=== PATIENT | female | born 1980 | race Caucasian/White ===

== ENCOUNTER → 2017-12-03 09:02 | Outpatient (CLI) | payer OTHER, SELFPAY ==
[2017-12-09 16:45] LABS: HCG Quantitative /Beta subunit 719.08 mIU/mL
== END ==
PROVIDERS: PCP Family Medicine; Visit Provider Family Medicine
DX: E34.9 Endocrine disorder, unspecified (principal)
CPT/HCPCS: 36415; 84702

== ENCOUNTER → 2017-12-12 10:32 | Outpatient (CLI) | payer OTHER, SELFPAY | PROVIDERS: PCP Family Medicine; Visit Provider Family Medicine | DX: Z34.81 Encounter for supervision of other normal pregnancy, first trimester (principal) | CPT/HCPCS: 87086 ==

== ENCOUNTER → 2017-12-12 10:42 | Outpatient (CLI) | payer OTHER, SELFPAY ==
[2017-12-12 10:55] LABS: Bacteria Urine None Seen; RBC Urine None Seen (0-5/HPF); WBC Urine None Seen (0-5/HPF)
[2017-12-12 11:48] LABS: Add Manual Diff / Slide Review NO; Basophils Percent Auto 0.8 % (0-2); Eosinophils Percent Auto 1.7 % (2-4); Hemoglobin 13.4 g/dL (12.0-16.0); Lymphocytes Percent Auto 27.4 % (25-40); Mean Corpuscular HGB Conc 35.2 % (30-36); Mean Corpuscular Hemoglobin 32.6 PG (26-34); Mean Corpuscular Volume 92.8 fL (80-100); Monocytes Percent Auto 8.6 % (3-14); Neutrophils Absolute Auto 4600 /uL (3000-5900); Neutrophils Percent Auto 61.5 % (50-75); Platelet Count 283 X10^3/uL (150-400); Red Cell Distribution Width 12.6 % (11.6-14.8); White Blood Cell Count 7.4 X10^3/uL (4.5-11.0)
[2017-12-12 13:11] LABS: Appearance Urine UA CLEAR; Bilirubin Urine UA NEGATIVE (NEGATIVE); Color Urine UA YELLOW; Glucose Urine UA NEGATIVE (Negative); Ketones Urine UA NEGATIVE (NEGATIVE); Leukocyte Esterase Urine UA NEGATIVE (NEGATIVE); Nitrite Urine UA Negative (Negative); Occult Blood Urine UA NEGATIVE (Negative); Protein Urine UA NEGATIVE (Negative); Specific Gravity Urine UA <=1.005 (1.000-1.035); Urobilinogen Urine UA 0.2 E.U./dL (0.2)
[2017-12-12 13:17] LABS: Culture Indicated Urine Cult Not Indicated; Urine Comments Microscopic Normal
[2017-12-12 16:34] LABS: Hepatitis B Surface Antigen NEGATIVE s/c (NEGATIVE)
[2017-12-12 16:52] LABS: HIV 1 and 2 Antibody NEGATIVE (NEGATIVE); Hep C Virus Ab w/Reflex Quant NEGATIVE s/c (NEGATIVE)
[2017-12-17 07:38] LABS: HSV 2 IGG AB < 0.90 index (< 0.90)
[2017-12-19 09:49] LABS: Rapid Plasma Reagin NON-REACTIVE
== END ==
PROVIDERS: PCP Family Medicine; Visit Provider Family Medicine
DX: Z34.81 Encounter for supervision of other normal pregnancy, first trimester (principal)
CPT/HCPCS: 36415; 80055; 86787; 86850; 86900; 86901

== ENCOUNTER → 2017-12-29 12:45 | Outpatient (CLI) | payer OTHER, SELFPAY | PROVIDERS: PCP Family Medicine; Visit Provider Family Medicine | DX: O09.519 Supervision of elderly primigravida, unspecified trimester (principal); Z53.9 Procedure and treatment not carried out, unspecified reason | CPT/HCPCS: 81507 ==

== ENCOUNTER → 2017-12-30 16:09 | Outpatient (CLI) | payer OTHER, SELFPAY | PROVIDERS: PCP Family Medicine; Visit Provider Family Medicine | DX: O09.519 Supervision of elderly primigravida, unspecified trimester (principal) | CPT/HCPCS: 36415; 81507 ==

== ENCOUNTER → 2018-01-15 11:43 | Outpatient (CLI) | payer OTHER, SELFPAY ==
[2018-01-23 07:57] LABS: Informaseq SEE SEPARATE REPORTS
== END ==
PROVIDERS: PCP Family Medicine; Visit Provider Family Medicine
DX: O09.519 Supervision of elderly primigravida, unspecified trimester (principal)
CPT/HCPCS: 36415; 81507

== ENCOUNTER → 2018-03-19 07:15 | Outpatient (CLI) | payer OTHER, SELFPAY ==
--- NOTE | 2018-03-19 07:37 | DI.US.S_ITS ---
PROCEDURE: US OB >= 14 WEEKS FETUS INDICATIONS: ANATOMY OUTSIDE/PRIOR DATING DATA: Last menstrual period (LMP): Unknown. LMP-based estimated date of delivery (SURY): N./A.. First dating scan (date and location): 03/19/18. Estimated date of delivery (SURY) from first dating scan: 08/06/18. TECHNIQUE: Real-time scanning was performed of the fetus, with image documentation and biometric measurements. Endovaginal scanning: No COMPARISON: [facility], , OB <= 14 WEEKS FETUS, 12/29/2017, 12:03. FINDINGS: General: A single living intrauterine gestation is present. Presentation: Transverse. Placenta: Placental position is posterior, without previa. Amniotic fluid index: 13.7 cm, normal range is 5-24 cm. heart rate: 160 beats per minute. Maternal cervical canal: 3.0 cm long. Normal lower limit is 2.5 cm. biometrics: Biparietal diameter: 20 weeks 1 day Head circumference: 20 weeks 0 days Abdominal circumference: 20 weeks 2 days Femur length: 19 weeks 4 days Estimated gestational age from initial scan: not applicable. Composite gestational age from present scan: 20 weeks 0 days Estimated weight and percentile: 327 g Measurement variability for biometric dating: +/- 7 days from 14 weeks to 15 weeks 6 days gestation, +/- 10 days from 16 weeks to 21 weeks 6 days gestation, +/- 2 weeks from 22 weeks to 27 weeks 6 days gestation, +/- 3 weeks for 28 weeks gestation or later. weight reference: 4500 g or EFW >90/95% is considered macrosomia or large for gestational age. EFW <10% is small for gestational age. EFW 5% or less is considered intra-uterine growth restriction. Anatomic survey: Neuro: Ventricles are non-dilated at less than 10 mm. Cisterna magna is normal at 3-11 mm. Cerebellum is normal in size and morphology. Nuchal skin fold: Normal at less than 6 mm between 14-21 weeks gestational age. Face: Nose and lips, facial profile are normal. Spine: No evidence for spina bifida. Heart: 4-chambered heart is present, with normal ventricular outflow tracts. Solitary left ventricular intracardiac focus. Diaphragm: Diaphragm is intact. Stomach: Left-sided stomach is present. Kidneys: No hydronephrosis. Normal is less than 5 mm in 2nd trimester, less than 7 mm in 3rd trimester. Cord: 3-vessel cord has orthotopic insertion. Bladder: Normal in size. Extremities: All 4 extremities identified. IMPRESSION: 1. Single living IUP present with mean gestational age of 20 weeks 0 days corresponding to an ultrasound SURY of 08/06/18. 2. Echogenic intracardiac focus: 1.4-1.8 fold increase in likelihood of Down syndrome. If isolated finding, consider aneuploidy screening with cell-free DNA. If aneuploidy screen is negative, no further evaluation needed. Anatomic survey otherwise is normal. Dictated by: Dante Gerard [facility] Interpreted: Andrea Foster MD on 03/19/2018 at 9:09 Approved by: Andrea Foster M.D. on 03/19/2018 at 10:59
== END ==
PROVIDERS: PCP Family Medicine; Visit Provider Family Medicine
DX: Z34.92 Encounter for supervision of normal pregnancy, unspecified, second trimester (principal); Z3A.20 20 weeks gestation of pregnancy
CPT/HCPCS: 76811

== ENCOUNTER → 2018-12-30 12:56 | Outpatient (CLI) | payer OTHER, SELFPAY ==
--- NOTE | 2018-12-30 12:57 | DI.RAD.S_ITS ---
PROCEDURE: XR LUMBAR SPINE 2-3V INDICATIONS: low back pain 5 mos TECHNIQUE: 3 views of the lumbar spine were acquired. COMPARISON: None. FINDINGS: Bones: 5 [id number] vertebrae are present. There is normal bony alignment. No vertebral body compression fractures. No suspicious bony lesions. Soft tissues: Overlying bowel gas pattern is normal. No suspicious soft tissue calcifications. Note is made of an IUD. IMPRESSION: Normal lumbar spine radiographs. Dictated by: Lazara Blake M.D. on 12/30/2018 at 16:54 Approved by: Lazara Blake M.D. on 12/30/2018 at 16:55
== END ==
PROVIDERS: PCP Family Medicine; Visit Provider Family Medicine
DX: M54.5 Low back pain (principal); G89.29 Other chronic pain
CPT/HCPCS: 72100

== ENCOUNTER → 2019-08-17 07:47 | Outpatient (CLI) | payer OTHER, SELFPAY ==
--- NOTE | 2019-08-17 07:51 | DI.CT.S_ITS ---
PROCEDURE: CT SINUS SCREEN WO CON INDICATIONS: recurrent sinus infections TECHNIQUE: Noncontrast 3.0 mm axial images acquired from the frontal sinuses to the mid-sella, with coronal and sagittal reformats. For radiation dose reduction, the following was used: automated exposure control, adjustment of mA and/or kV according to patient size. COMPARISON: None. FINDINGS: Image quality: Excellent. There is bilateral moderate to severe opacification of both maxillary sinuses as well as both ethmoid air cells. The sphenoid sinuses appear clear. There is minimal left greater than right frontal sinus mucosal thickening. There is possible acute appearance of the right maxillary sinus Ostiomeatal Complexes: Ostiomeatal complexes are completely opacified bilaterally. No Yeni cells. Miscellaneous: Visualized intra-orbital contents are normal. No masha bullosa or paradoxical turbinate curvature. No nasal septal deviation. IMPRESSION: Bilateral maxillary and ethmoid sinus disease, possibly acute involving the right maxillary sinus. Minimal mucosal thickening of the frontal sinuses, left greater than right. Bilateral complete opacification of both ostiomeatal complexes Dictated by: Moustapha Sullivan M.D. on 08/17/2019 at 9:28 Approved by: Moustapha Sullivan M.D. on 08/17/2019 at 9:32
== END ==
PROVIDERS: Visit Provider Family Medicine
DX: J32.8 Other chronic sinusitis (principal)
CPT/HCPCS: 70486

== ENCOUNTER → 2020-09-01 09:19 | Outpatient (CLI) | payer OTHER, SELFPAY ==
--- NOTE | 2020-09-01 09:20 | DI.US.S_ITS ---
PROCEDURE: US THYROID INDICATIONS: PALPABLE THYROID NODULES TECHNIQUE: Real-time scanning was performed of the thyroid gland, with image documentation. COMPARISON: None. FINDINGS: Right: The right thyroid lobe overall measures 2.0 x 2.5 x 5.1 cm. It contains 3 nodules in apposition at the middle and upper thirds of the right thyroid lobe. The 1st nodule is the larger lower of the 2, with the 2nd nodule immediately above. The 3rd nodule is the smallest, and lateral to the 1st nodule. The nodule characteristics are as follows: 1. This nodule measures 1.4 x 1.7 x 2.1 cm. Morphologically this nodule is wider than tall, solid, hypoechoic, with smooth margination and no internal calcifications. This yields a thyroid categorization score value of 4 points, with a TI-rads level of 4, considered moderately suspicious. Given its average size of just above 1.5 cm fine needle aspiration is recommended. 2. This nodule measures 1.2 x 1.1 x 1.3 cm. This nodule also is wider than tall, solid, isoechoic, smoothly marginated and contains no calcifications. It also has a categorization score of 3 with a TI-rads classification of 3, mildly suspicious, but given its average size of less than 1.5 cm no additional follow-up is recommended 3. This nodule measures 0.5 x 0.9 x 1.2 cm. It is wider than tall, solid, hypoechoic, smoothly marginated with no internal calcifications. This yields a thyroid categorization score of 4, TI-rads 4, moderately suspicious, and given its average size of slightly almost 1 cm follow-up by repeat thyroid ultrasound in 1, 2, 3 and 5 years is recommended. Left: The left thyroid lobe measures 0.9 x 1.3 x 4.3 cm and contains no identifiable nodule. Isthmus: The isthmus is 1.5 mm in maximal thickness. No nodule. IMPRESSION: No thyroid nodules on the left. Three thyroid nodules in close proximity are present on the right. The largest nodule, nodule 1, is recommended to be biopsied utilizing fine needle aspiration technique. The nodule that is identified as nodule 3 is moderately suspicious and of a size that warrants sonographic follow-up in 1, 2, 3 and 5 years to establish stability of appearance over time. During such follow-up the additional 2 lesions should also be evaluated over time given their close proximity. Dictated by: Michel Pisano M.D. on 09/01/2020 at 15:31 Approved by: Michel Pisano M.D. on 09/01/2020 at 15:48
== END ==
PROVIDERS: PCP Family Medicine; Referring Provider Family Medicine; Visit Provider Family Medicine
DX: E04.2 Nontoxic multinodular goiter (principal)
CPT/HCPCS: 76536

== ENCOUNTER → 2020-09-18 12:36 | Outpatient (CLI) | payer OTHER, SELFPAY ==
--- NOTE | 2020-09-18 | PATH_ITS ---
Note [facility] Accession Number: [id number] TESTS RESULT FLAG UNITS REF RANGE LAB Clinician Provided Cytology Information No. of containers..01 Other (Miscellaneous) No. of containers..05 Previously Prepared Cytology Slide 01 RIGHT THYROID NODULE DIAGNOSIS: 01 RIGHT THYROID NODULE #1, FINE NEEDLE ASPIRATION. NEGATIVE FOR MALIGNANT CELLS. ADEQUATE FOR EVALUATION. FOLLICULAR GROUPS ARE PRESENT. BENIGN FOLLICULAR (GOITEROUS) NODULE (BETHESDA CATEGORY II), SEE COMMENT. COMMENT: MICROSCOPIC EXAMINATION REVEALS A MILDLY CELLULAR ASPIRATE, COMPOSED OF COLLOID, FOLLICULAR GROUPS WITHOUT SIGNIFICANT CYTOLOGIC OR ARCHITECTURAL ATYPIA, AND BACKGROUND MACROPHAGES. THESE FINDINGS SUPPORT A BENIGN FOLLICULAR (GOITEROUS) NODULE. CORRELATION WITH CLINICAL AND RADIOGRAPHIC FINDINGS IS RECOMMENDED. ACCORDING TO THE BETHESDA REPORTING SYSTEM FOR THYROID CYTOPATHOLOGY, THE RISK OF MALIGNANCY IN THE CATEGORY BENIGN-CATEGORY II IS 0-3%; THEREFORE RECOMMEND CONTINUED ULTRASOUND SURVEILLANCE WITH REPEAT FNA IF THE NODULE SIGNIFICANTLY INCREASES IN SIZE. Pathologist ICD10: 01 E04.2 01 Right: The right thyroid lobe overall measures 2.0 x 2.5 x 5.1 cm. It contains 3 nodules in apposition at the middle and upper thirds of the right thyroid lobe. The 1st nodule is the larger lower of the 2, with the 2nd nodule immediately above. The 3rd nodule is the smallest, and lateral to the 1st nodule. The nodule characteristics are as follows: 1. This nodule measures 1.4 x 1.7 x 2.1 cm. Morphologically this nodule is wider than tall, solid, hypoechoic, with smooth margination and no internal calcifications. This yields a thyroid categorization score value of 4 points, with a Tl-rads level of 4, considered moderately suspicious. Given its average size of just above 1.5 cm fine needle aspiration is recommended. 2. This nodule measures 1.2 x 1.1 x 1.3 cm. This nodule also is wider than tall, solid, isoechoic, smoothly marginated and contains no calcifications. It also has a categorization score of 3 with a Tl- rads classification of 3, mildly suspicious, but given its average size of less than 1.5 cm no additional follow-up is recommended 3. This nodule measures 0.5 x 0.9 x 1.2 cm. It is wider than tall, solid,hypoechoic, smoothly marginated with no internal calcifications. This yields a thyroid categorization score of 4, Tl-rads 4, moderately suspicious, and given its average size of slightly almost 1 cm follow-up by repeat thyroid ultrasound in 1, 2, 3 and 5 years is recommended. 01 Madelaine Mckeon MD, Pathologist NPI- [id number] Cher Gross, Beauty Parlor Cleaner ([facility]) 01 30 CC, RED, CLEAR RECIEVED: IN CYTOLYT WITH 5 ALCOHOL FIXED AND 5 QUICK STAINED SLIDES ALSO 1 RNA VIAL WAS RECEIVED FOR FURTHER TESTING. /[facility] 09/19/2020 0549 Local FLAG LEGEND: L-Low Normal,H-High Normal,LL-Alert Low,HH-Alert High <-Panic Low,>-Panic High,A-Abnormal,AA-Critical Abnormal Performed at: 01 =Z [facility] [address], [place] [address] Juma Lares MD, Specimen Comment: A duplicate report has been generated due to demographic updates. Performed at: 01 [facility] [address], [place], [place] [id number] MD Juma Lares MD Phone: [phone]
--- NOTE | 2020-09-18 12:37 | DI.US.S_ITS ---
PROCEDURE: US FINE NEEDLE ASPIRATION INDICATIONS: RIGHT THYROID NODULE TECHNIQUE: The indications, alternatives, benefits, risks, and complications of the procedure were explained to the patient. Written informed consent was obtained and placed in the chart. The thyroid region was examined sonographically and a site was chosen for ultrasound guided percutaneous sampling. The skin was prepared and draped in the usual fashion, and anesthetized with 1% lidocaine infiltrated from the skin down to the thyroid gland. Multiple passes were then performed, with contents emptied into an appropriate pathology specimen container. A bandage was applied to the area of access at completion of the study. COMPARISON: None. FINDINGS: Location(s) of lesion(s) sampled: Right lobe [place]: 25 and 22 gauge hypodermic needles. Number of passes: 6 Medications: 1% lidocaine for local anaesthesia. Complications: None. IMPRESSION: Successful ultrasound-guided thyroid nodule fine needle aspiration, with cytology results pending. Please see chart below for management recommendations based on cytology results. [place] [facility] ReportingRecommendationsNon-diagnostic* Repeat US-guided FNA, with on-site cytology evaluation if possible. * Repeated non-diagnostic nodules without high suspicion US features: close observation vs surgical consult. * Consider surgery if nodule has high suspicion US features, grows >20% in 2 dimensions on followup, or patient has clinical risk factors for malignancy. Benign* If nodule has high suspicion US features: repeat US and FNA within 12 months. * If nodule has low to intermediate suspicion US features: repeat US at 12-24 months. If nodule grows (20% increase in at least 2 dimensions, with minimal increase of 2 mm or >50% change in volume), or development of new suspicious US features, then repeat FNA or continue followup. * If nodule has very low suspicion US features: followup US at >24 months. Atypia of undetermined significance, follicular lesion of undetermined significanceRepeat FNA, molecular testing, followup US, or surgical consult.Follicular neoplasm, suspicious for follicular neoplasmSurgical consult; also consider molecular testing. Suspicious for malignancySurgical consult.MalignantSurgical consult. Dictated by: Moustapha Sullivan M.D. on 09/18/2020 at 16:26 Approved by: Moustapha Sullivan M.D. on 09/18/2020 at 16:27
== END ==
PROVIDERS: PCP Family Medicine; Referring Provider Family Medicine; Visit Provider Family Medicine
DX: E04.1 Nontoxic single thyroid nodule (principal)
CPT/HCPCS: 10005

== ENCOUNTER → 2020-10-04 16:07 | Outpatient (CLI) | payer OTHER, SELFPAY ==
[2020-10-04] MEDS: COVID-19 VACC #1, MRNA(MOD) 100 MCG/0.5 ML VIAL IM (16:15)
== END ==
PROVIDERS: PCP Family Medicine; Visit Provider Internal Medicine
DX: Z23 Encounter for immunization (principal)
CPT/HCPCS: 0011A; 91301

== ENCOUNTER → 2020-11-01 16:16 | Outpatient (CLI) | payer OTHER, SELFPAY ==
[2020-11-01] MEDS: COVID-19 VACC #2, MRNA(MOD) 100 MCG/0.5 ML VIAL IM (16:23)
== END ==
PROVIDERS: PCP Family Medicine; Visit Provider Internal Medicine
DX: Z23 Encounter for immunization (principal)
CPT/HCPCS: 0012A; 91301

== ENCOUNTER → 2022-07-02 14:45 | Outpatient (CLI) | payer OTHER, SELFPAY ==
[2022-07-02 15:48] LABS: Influenza A - CEPHEID Flu A POSITIVE (NEGATIVE); Influenza B - CEPHEID Flu B NEGATIVE (NEGATIVE); Respiratory Syncytial Virus Negative (Negative)
[2022-07-02 15:57] LABS: COVID-19 CEPHEID 4-PLEX PCR Negative (Negative)
== END ==
PROVIDERS: PCP Family Medicine; Visit Provider Registered Nurse
DX: R05.1 Acute cough (principal); Z20.822 Contact with and (suspected) exposure to COVID-19
CPT/HCPCS: 0241U

== ENCOUNTER → 2022-08-21 10:19 | Outpatient (CLI) | payer OTHER, SELFPAY ==
--- NOTE | 2022-08-21 10:21 | DI.MG.S_ITS ---
BILATERAL DIGITAL SCREENING MAMMOGRAM 3D/2D WITH CAD: 08/21/2022 CLINICAL: Routine screening. Baseline exam. No prior exams were available for comparison. Both breasts are extremely dense, which lowers the sensitivity of mammography (category d />75% glandular tissue). Current study was also evaluated with a Computer Aided Detection (CAD) system. No significant masses, calcifications, or other findings are seen in either breast. IMPRESSION: NEGATIVE There is no mammographic evidence of malignancy. A 1 year screening mammogram is recommended. This exam was interpreted at Station ID: [id number]. NOTE: For mammograms, a report in lay terms will be sent to the patient. Approximately 15% of breast malignancies will not be visualized mammographically. In the management of a palpable breast mass, a negative mammogram must not discourage biopsy of a clinically suspicious lesion. Electronically Signed By: Tristen camilo/saurabh:08/21/2022 13:38:48 letter sent: Normal Exam ACR BI-RADS Category 1: Negative [id number]
--- NOTE | 2022-08-21 10:21 | DI.US.S_ITS ---
PROCEDURE: US THYROID INDICATIONS: Thyroid nodule TECHNIQUE: Real-time scanning was performed of the thyroid gland, with image documentation. COMPARISON: [facility], US, US FINE NEEDLE ASPIRATION, 09/18/2020, 13:20. [facility], US, US THYROID, 09/01/2020, 9:51. FINDINGS: Right: Thyroid lobe measures 6.2 x 2.0 x 2.5 cm, and demonstrates multiple nodules. Left: Thyroid lobe measures 5.4 x 1.5 x 1.1 cm, and is homogenous in echotexture. Isthmus: 1.8 mm thick. Nodule number: 1 Location: Right mid thyroid Size: 2.1 x 1.7 x 1.3 cm. Composition: Predominantly solid Echogenicity: Hypoechoic Shape: wider than tall. Margins: Smooth Echogenic foci: Punctate and peripheral calcifications are present. Total points: 9 ACR TI-RADS category: 5 Recommendations: This lesion was previously fine needle aspirated. Continued follow-up is recommended. Nodule number: 2 Location: Right superior thyroid Size: 1.1 x 1.1 x 1.2 cm. Composition: Predominantly solid Echogenicity: Isoechoic Shape: wider than tall. Margins: Smooth Echogenic foci: None Total points: 3 ACR TI-RADS category: 3 Recommendations: Continue sonographic follow-up. Nodule number: 3 Location: Right posterosuperior thyroid Size: 1.3 x 1.1 x 0.7 cm. Composition: Predominantly solid Echogenicity: Hypoechoic Shape: wider than tall. Margins: Smooth Echogenic foci: Punctate Total points: 7 ACR TI-RADS category: 5 Recommendations: Fine-needle aspiration IMPRESSION: 1. Right thyroid nodules; follow-up is recommended as above. Dictated by: Payton Moscoso M.D. on 08/21/2022 at 14:15 Transcribed by: NOE on 08/21/2022 at 14:19 Approved by: Payton Moscoso M.D. on 08/21/2022 at 16:27
== END ==
PROVIDERS: PCP Family Medicine; Referring Provider Family Medicine; Visit Provider Family Medicine
DX: Z12.31 Encounter for screening mammogram for malignant neoplasm of breast (principal); E04.2 Nontoxic multinodular goiter
CPT/HCPCS: 76536; 77063; 77067

== ENCOUNTER → 2022-09-23 14:20 | Outpatient (CLI) | payer OTHER, SELFPAY ==
--- NOTE | 2022-09-23 | PATH_ITS ---
Note [facility] Accession Number: [id number] TESTS RESULT FLAG UNITS REF RANGE LAB Clinician Provided Cytology Information No. of containers..02 Previously Prepared Cytology Slide 35 Unknown Storage/container code(s) Source: RIGHT THYROID NODULE DIAGNOSIS: RIGHT THYROID NODULE INCONCLUSIVE. BETHESDA CATEGORY III. ATYPIA OF UNDETERMINED SIGNIFICANCE. MOLECULAR STUDIES PENDING; RESULTS WILL BE REPORTED SEPARATELY. Pathologist ICD10: R89.6, E04.1 Signed out by: Hawa Telles MD, Pathologist NPI- [id number] Performed by: Solo Virgen, Change Management Facilitator ([facility]) Gross description: 30 CC, PINK, CLEAR RECIEVED IN CYTOLYT WHITE CAP CONTAINER RECEIVED 6 ALCOHOL FIXED SLIDES IN 2 GREEN CAP COFFINS RECEIVED 6 FIXED SLIDES IN 2 SLIDE HOLDERS RECEIVED 1 RNA VIAL /RZA 09/24/2022 0822 Local FLAG LEGEND: L-Low Normal,H-High Normal,LL-Alert Low,HH-Alert High <-Panic Low,>-Panic High,A-Abnormal,AA-Critical Abnormal Performed at: 01 =Z [facility] [address], [place] [address] Juma Lares MD, Performed at: 01 [facility] [address], [place], [place] [id number] MD Juma Lares MD Phone: [phone]
--- NOTE | 2022-09-23 14:20 | DI.US.S_ITS ---
PROCEDURE: US FINE NEEDLE ASPIRATION INDICATIONS: RIGHT THYROID NODULE TECHNIQUE: The indications, alternatives, benefits, risks, and complications of the procedure were explained to the patient. Written informed consent was obtained and placed in the chart. The thyroid region was examined sonographically and a site was chosen for ultrasound guided percutaneous sampling. The skin was prepared and draped in the usual fashion, and anesthetized with 1% lidocaine infiltrated from the skin down to the thyroid gland. Multiple passes were then performed, with contents emptied into an appropriate pathology specimen container. A bandage was applied to the area of access at completion of the study. COMPARISON: [facility], US, US THYROID, 08/21/2022, 10:36. [facility], US, US FINE NEEDLE ASPIRATION, 09/18/2020, 13:20. FINDINGS: Location of lesion sampled: Right posterosuperior thyroid (nodule #3 on ultrasound from 08/21/2022). [place]: 25 gauge hypodermic needles. Number of passes: 6 Medications: 1% lidocaine for local anaesthesia. Complications: None. IMPRESSION: Successful ultrasound-guided thyroid nodule fine needle aspiration, with cytology results pending. Please see chart below for management recommendations based on cytology results. [place] [facility] ReportingRecommendationsNon-diagnostic* Repeat US-guided FNA, with on-site cytology evaluation if possible. * Repeated non-diagnostic nodules without high suspicion US features: close observation vs surgical consult. * Consider surgery if nodule has high suspicion US features, grows >20% in 2 dimensions on followup, or patient has clinical risk factors for malignancy. Benign* If nodule has high suspicion US features: repeat US and FNA within 12 months. * If nodule has low to intermediate suspicion US features: repeat US at 12-24 months. If nodule grows (20% increase in at least 2 dimensions, with minimal increase of 2 mm or >50% change in volume), or development of new suspicious US features, then repeat FNA or continue followup. * If nodule has very low suspicion US features: followup US at >24 months. Atypia of undetermined significance, follicular lesion of undetermined significanceRepeat FNA, molecular testing, followup US, or surgical consult.Follicular neoplasm, suspicious for follicular neoplasmSurgical consult; also consider molecular testing. Suspicious for malignancySurgical consult.MalignantSurgical consult. Approved by: Rene Martin M.D. on 09/23/2022 at 17:01
== END ==
PROVIDERS: PCP Family Medicine; Referring Provider Physician Assistant; Visit Provider Physician Assistant
DX: E04.1 Nontoxic single thyroid nodule (principal); R89.6 Abnormal cytological findings in specimens from other organs, systems and tissues
CPT/HCPCS: 10005

== ENCOUNTER → 2022-11-13 06:57 | Outpatient (CLI) | payer OTHER, SELFPAY ==
[2022-11-13 10:36] LABS: TSH w/ Reflex to FT4 2.37 uIU/mL (0.47-4.68)
== END ==
PROVIDERS: PCP Family Medicine; Referring Provider Family Medicine; Visit Provider Family Medicine
DX: E04.1 Nontoxic single thyroid nodule (principal)
CPT/HCPCS: 36415; 84443

== ENCOUNTER → 2023-08-22 15:57 | Outpatient (CLI) | payer OTHER, SELFPAY ==
--- NOTE | 2023-08-22 15:59 | DI.MG.S_ITS ---
BILATERAL DIGITAL SCREENING MAMMOGRAM 3D/2D WITH CAD: 08/22/2023 Comparison is made to exam dated: 08/21/2022 mammogram - [facility]. Both breasts are extremely dense, which lowers the sensitivity of mammography (category d />75% glandular tissue). Current study was also evaluated with a Computer Aided Detection (CAD) system. No significant masses, calcifications, or other findings are seen in either breast. There has been no significant interval change. IMPRESSION: NEGATIVE There is no mammographic evidence of malignancy. A 1 year screening mammogram is recommended. Based on the Tyrer Cuzick model (a risk assessment model) the patient's lifetime risk is 16.8% and her 10 year risk is 2.6%. According to the ACR, ACS, and NCCN guidelines, an annual breast MRI exam along with mammogram is recommended if the patient's lifetime risk is 20% or greater. This exam was interpreted at Station ID: [id number]. NOTE: For mammograms, a report in lay terms will be sent to the patient. Approximately 15% of breast malignancies will not be visualized mammographically. In the management of a palpable breast mass, a negative mammogram must not discourage biopsy of a clinically suspicious lesion. Electronically Signed By: Maggi Han M.D., PH.D panchito/saurabh:08/22/2023 23:12:34 letter sent: Normal Exam ACR BI-RADS Category 1: Negative [id number]
== END ==
PROVIDERS: PCP Family Medicine; Referring Provider Family Medicine; Visit Provider Family Medicine
DX: Z12.31 Encounter for screening mammogram for malignant neoplasm of breast (principal); R92.343 Mammographic extreme density, bilateral breasts
CPT/HCPCS: 77063; 77067

== ENCOUNTER → 2023-10-02 14:31 | Outpatient (CLI) | payer OTHER, SELFPAY ==
--- NOTE | 2023-10-02 14:30 | DI.US.S_ITS ---
PROCEDURE: US THYROID INDICATIONS: FOLLOW-UP NODULES TECHNIQUE: Real-time scanning was performed of the thyroid gland, with image documentation. COMPARISON: US, US THYROID, 08/21/2022, 10:36. [facility], US, US THYROID, 09/01/2020, 9:51. FINDINGS: Thyroid: Right lobe measures 4.9 x 1.9 x 2.0 cm. Left lobe measures 4.8 x 0.9 x 1.1 cm. Isthmus is 1.2 mm thick. Echotexture is homogeneous. Nodule number: 1 Location: right mid Size: 2.0 x 1.3 x 1.7 cm compared to 2.1 x 1.4 x 1.7 cm. Composition: solid Echogenicity: hypoechoic Shape: wider than tall. Margins: smooth Echogenic foci: macrocalcifications Total points: 5 ACR TI-RADS category: 4 Nodule number: 2 Location: Right superior Size: 1.2 x 1.3 x 1.1 are cm 1.3 x 1.2 x 1.1 cm. Composition: solid Echogenicity: hypoechoic Shape: wider than tall. Margins: smooth Echogenic foci: none Total points: 4 ACR TI-RADS category: 4 Nodule number: 3 Location: right superior Size: 1.3 x 0.6 x 0.8 cm compared to 1.2 x 0.5 x 0.9 cm. Composition: Solid Echogenicity: Hypoechoic Shape: wider than tall. Margins: Smooth Echogenic foci: None Total points: 4 ACR TI-RADS category: 4 IMPRESSION: Lesion 1 was previously biopsied, benign. No additional follow-up. Lesions 2 and 3 are considered category 4. Secondary to size, imaging follow-up as below. ACR TI-RADS definitions and recommendations: TI-RADS 1 (benign): 0 points. FNA not needed. TI-RADS 2 (not suspicious): 2 points. FNA not needed. TI-RADS 3 (mildly suspicious): 3 points. * FNA if 2.5 cm or larger, follow up if 1.5 cm or larger (at 1, 3, and 5 years). TI-RADS 4 (moderately suspicious): 4-6 points. * FNA if 1.5 cm or larger, follow up if 1 cm or larger (at 1, 2, 3, and 5 years). TI-RADS 5 (highly suspicious): 7 points or more. * FNA if 1 cm or larger, follow up if 0.5 cm or larger (every year for 5 years). Dictated by: Patti Cid M.D. on 10/03/2023 at 15:48 Approved by: Patti Cid M.D. on 10/03/2023 at 15:55
== END ==
LOC: US 14:32
PROVIDERS: PCP Family Medicine; Referring Provider Physician Assistant; Visit Provider Physician Assistant
DX: E04.2 Nontoxic multinodular goiter (principal)
CPT/HCPCS: 76536

== ENCOUNTER → 2023-12-01 16:16 | Outpatient (CLI) | payer OTHER, SELFPAY ==
--- NOTE | 2023-12-01 16:17 | DI.RAD.S_ITS ---
PROCEDURE: XR CHEST 2V INDICATIONS: cough TECHNIQUE: 2 views of the chest were acquired. COMPARISON: None. FINDINGS: Surgical changes and devices: None. Lungs and pleura: Possible right infrahilar parenchymal opacity partially obscuring the right heart border. Lungs are otherwise clear. No effusion or pneumothorax. Mediastinum: Mediastinal contours are normal. Heart size is normal. Bones and chest wall: No suspicious bony abnormalities. Soft tissues appear unremarkable. IMPRESSION: Possible small right infrahilar consolidation which may be pneumonia or atelectasis. Dictated by: Genevieve Walter M.D. on 12/01/2023 at 17:14 Approved by: Genevieve Walter M.D. on 12/01/2023 at 17:15
== END ==
PROVIDERS: PCP Family Medicine; Referring Provider Nurse Practitioner Family; Visit Provider Nurse Practitioner Family
DX: R05.9 Cough, unspecified (principal)
CPT/HCPCS: 71046

== ENCOUNTER → 2024-10-14 16:19 | Outpatient (CLI) | payer OTHER, SELFPAY ==
--- NOTE | 2024-10-14 16:20 | DI.MG.S_ITS ---
MM screening mammo BI: 10/14/2024. BI-RADS: 2 CLINICAL: 44-year old female for bilateral screening mammogram. Tyrer-Cuzick lifetime risk of 16.7%. No personal or first-degree family history of breast cancer. PRIOR EXAMS 08/22/2023, 08/21/2022. MAMMOGRAPHY TECHNIQUE: 2D and 3D (tomosynthesis) digital mammographic views obtained, with additional images as needed for full coverage. Current study was also evaluated with a Computer Aided Detection (CAD) system. DENSITY D. The breasts are extremely dense, which lowers the sensitivity of mammography. MAMMOGRAPHY FINDINGS Bilateral: Benign-appearing calcifications noted. There are no suspicious masses, calcifications, or other findings in the breast. No significant change from comparison. IMPRESSION: * No evidence of malignancy with benign findings. RECOMMENDATIONS Bilateral * Annual screening mammography. OVERALL ASSESSMENT CATEGORY BI-RADS-2: Benign. [employer] recommends annual screening mammography beginning at age 40 for women with average risk of breast cancer. ELECTRONICALLY SIGNED: Lise Salas M.D. on 10/15/2024 at 09:46:48 PM PT Interpreting Station ID: [id number]
== END ==
LOC: MAMMO 16:20
PROVIDERS: PCP Family Medicine; Referring Provider Family Medicine; Visit Provider Family Medicine
DX: Z12.31 Encounter for screening mammogram for malignant neoplasm of breast (principal); R92.343 Mammographic extreme density, bilateral breasts
CPT/HCPCS: 77063; 77067